=== PATIENT | female | born 1945 | race Caucasian/White ===

== ENCOUNTER → 2017-02-10 | Outpatient (CLI) | payer OTHER ==
--- NOTE | 2017-02-13 14:30 | MAMMOGRAPHY REPORT ---
BILATERAL DIGITAL SCREENING MAMMOGRAM TOMOSYNTHESIS WITH CAD: 02/10/2017 CLINICAL HISTORY: Routine screening. Patient has no complaints. TECHNIQUE: Breast tomosynthesis in addition to standard 2D mammography was performed. Current study was also evaluated with a Computer Aided Detection (CAD) system. COMPARISON: Comparison is made to exams dated: 02/09/2016 mammogram, 02/04/2015 mammogram, 02/03/2014 abdullahi mogram, 01/31/2013 mammogram, 01/05/2012 mammogram, and 07/15/2011 mammogram - [facility]. BREAST COMPOSITION: The tissue of both breasts is almost entirely fatty. FINDINGS: No suspicious masses, calcifications, or areas of architectural distortion are noted in ei ther breast. There has been no significant interval change compared to prior exams. IMPRESSION: ACR BI-RADS CATEGORY 1: NEGATIVE There is no mammographic evidence of malignancy. A 1 year screening mammogram is recommended. The pa tient will receive written notification of the results. Approximately 10% of breast cancers are not detected with mammography. A negative mammographic report should not delay biopsy if a clinically suggestive mass is present. Caitie Saucedo M.D. /:02/10/2017 16:30:42 Appeals Board Referee: Jesenia Eastman, [facility] letter sent: Normal 1/2 BI-RADS Code: ACR BI-RADS Category 1: Negative
== END | disposition home or self-care (01) ==
LOC: C.MAMM 11:08
PROVIDERS: ATTEND Family Medicine
DX: Z12.31 Encounter for screening mammogram for malignant neoplasm of breast (principal)

== ENCOUNTER 2021-03-26 09:25 | Observation (INO) ==
--- NOTE | 2021-02-24 12:53 | PAT Medication Instructions ---
Medication Instructions Date of Service February 24, 2021 Home Medications Medication Instructions Recorded diclofenac sodium 75 mg See Rx Instructions .ROUTE 12/07/20 tablet,delayed release .COMPLEX #60 tab tramadol 50 mg tablet 50 mg PO Q8H PRN #30 tab 02/22/21 acetaminophen 325 mg capsule 325 mg PO Q6H PRN hydrochlorothiazide 25 mg tablet 25 mg PO QAM omeprazole 20 mg capsule,delayed release 20 mg PO QAM diclofenac sodium 75 mg tablet,delayed release See Rx Instructions .ROUTE .COMPLEX tramadol 50 mg tablet 50 mg PO Q8H PRN escitalopram oxalate 20 mg tablet 20 mg PO QAM furosemide 40 mg tablet (Lasix) 40 mg PO QAM glucosamine sulf dipot chlr,msm,chond 550 mg-C 30 mg-brian 1 mg capsule (Glucosamine Chondroitin) 1 cap PO BID ibuprofen 200 mg tablet (Advil) 400 mg PO Q6H PRN ASK your surgeon for instructions diclofenac sodium 75 mg tablet,delayed release See Rx Instructions .ROUTE .COMPLEX ibuprofen 200 mg tablet (Advil) 400 mg PO Q6H PRN STOP taking 2 weeks before surgery (or as soon as possible if surgery is within 2 weeks) glucosamine sulf dipot chlr,msm,chond 550 mg-C 30 mg-brian 1 mg capsule (Glucosamine Chondroitin) 1 cap PO BID DO NOT take the morning of surgery hydrochlorothiazide 25 mg tablet 25 mg PO QAM furosemide 40 mg tablet (Lasix) 40 mg PO QAM Take morning of surgery With a small sip of water, OTHERWISE NOTHING TO EAT OR DRINK AFTER MIDNIGHT: acetaminophen 325 mg capsule 325 mg PO Q6H PRN (if needed) omeprazole 20 mg capsule,delayed release 20 mg PO QAM tramadol 50 mg tablet 50 mg PO Q8H PRN (if needed) escitalopram oxalate 20 mg tablet 20 mg PO QAM Take evening before surgery acetaminophen 325 mg capsule 325 mg PO Q6H PRN (if needed) tramadol 50 mg tablet 50 mg PO Q8H PRN (if needed) Other Notes If you have any questions please call us at [phone] or [phone] or [phone] or [phone]
--- NOTE | 2021-03-01 14:07 | Anesthesiology Consultation ---
Date of Service March 01, 2021 Assessment & Plan (1) Encounter for pre-operative examination: - Abnormal CXR: Per report, Tiny nodular foci of the lungs measure up to 3 mm, possibly district representative of prior granulomatous disease with recommendation to correlate with prior imaging. Awaiting response from PCP. - COVID screening: Per assessment on 03/01: Travel screen negative, no known [place] VID-19 positive contacts or current COVID-19 related symptoms. Surgeon arranging preop COVID testing. Awaiting results. - Per patient, she states surgeon's office informed her that the plan is to stay overnight postoperatively. Chart Review Chart Review: Patient seen in Pre Admission Testing Teaching & Discussion Pre-Anesthesia Teaching/Discussion Notes: Instructed NPO after midnight before surgery,except medications with 15 cc of water. Medication instructions provided according to the PAT guidelines. History Surgery Operation Date: 03/26/21 07:00 Proposed Procedures p Left Total Knee Arthroplasty - Romeo Florian, Height/Weight Height: 5 ft 5 in Weight: 82.6 kg Allergies Allergy/AdvReac Type Severity Reaction Status Date / Time No Known Allergies Allergy Verified 02/23/21 15:00 Medications Home Medications Medication Instructions Recorded Confirmed Last Taken acetaminophen 325 mg capsule 325 mg PO Q6H PRN 07/02/19 02/23/21 Unknown hydrochlorothiazide 25 mg tablet 25 mg PO QAM 07/02/19 02/23/21 Unknown omeprazole 20 mg capsule,delayed 20 mg PO QAM 07/02/19 02/23/21 Unknown release diclofenac sodium 75 mg See Rx Instructions .ROUTE 12/07/20 02/23/21 Unknown tablet,delayed release .COMPLEX #60 tab tramadol 50 mg tablet 50 mg PO Q8H PRN #30 tab 02/22/21 02/23/21 Unknown escitalopram oxalate 20 mg tablet 20 mg PO QAM 02/23/21 02/23/21 Unknown furosemide 40 mg tablet (Lasix) 40 mg PO QAM 02/23/21 02/23/21 Unknown glucosamine sulf dipot 1 cap PO BID 02/23/21 02/23/21 Unknown chlr,msm,chond 550 mg-C 30 mg-brian 1 mg capsule (Glucosamine Chondroitin) ibuprofen 200 mg tablet (Advil) 400 mg PO Q6H PRN 02/23/21 02/23/21 Unknown Past Medical History Medical History Acid reflux Anxiety Depression History of blood clots Superficial LLE clot (approximately 8 months ago), unknown etiology, advised to wear compression stockings, no issues since Hypertension Osteoarthritis Exercise / Class Metabolic Activity III < 4 Walking/Shop/Light housework (one FS (no CP, no SOB)) Past Family History Family History Daughter Family history of reaction to anesthesia difficulty waking Past Surgical History Surgical History History of bilateral tubal ligation History of bladder suspension procedure History of cholecystectomy History of colonoscopy History of dilatation and curettage x2 History of tooth extraction all teeth removed Past Anesthesia History No Hx of Anesthesia Complications and No Family Hx of Anesthesia Complications History of PONV No Hx of PONV and No Hx of Motion Sickness Social History Smoking Status: Never smoker Do You Dip or Chew Tobacco: No Hx Alcohol Use: No Hx Substance Use: No substance use type: does not use Review of Systems Patient denies chest pain, shortness of breath, fever, chills, cough, wheezing, palpitations. Physical Exam Vital Signs VITALS BP 136/75 P 65 TEMP 98.6 SP02 95%RA RESP 18 PHYSICAL Full cervical extension range of motion. Full TMJ range of motion. TMD 3.5 finger breaths Mallampati Score 2 Dentition: upper/lower dentures (full) Lungs: clear throughout to auscultation Cardiac: regular rate and rhythm, no murmurs noted Spine: normal Carotid arteries: negative bruit Extremities: no edema Lab Results Anesthesia Preop Results Results Anesthesia Widget: WBC 8.32 K/uL (4.8-10.8) 03/01/21 Hgb 12.1 g/dL (12.0-16.0) 03/01/21 Hct 37.5 % (37-47) 03/01/21 Plt 443 K/uL (130-400) H 03/01/21 Na 138 mmol/L (136-145) 03/01/21 K 3.3 mmol/L (3.5-5.1) L 03/01/21 Cl 100 mmol/L (98-107) 03/01/21 CO2 32 mmol/L (21-32) 03/01/21 BUN 14 mg/dl (7-18) 03/01/21 Creat 1.01 mg/dl (0.6-1.2) 03/01/21 Glucose Level 90 mg/dl (70-99) 03/01/21 PT 10.5 Seconds (9.0-12.0) 03/01/21 PTT 25.5 Seconds (21.0-31.0) 03/01/21 INR 1.0 (0.9-1.1) 03/01/21 Blood Type A Positive 03/01/21 Antibody Screen NEGATIVE 03/01/21 Testing Electrocardiogram Date: 03/01/21 NSR at 62bpm. Moderate voltage criteria for LVH, may be normal variant. Chest X-Ray Date: 03/01/21 FINDINGS: Cardiomediastinal and hilar silhouettes are within normal limits. Calcified plaque of the thoracic aorta. No pneumothorax, pleural effusion, airspace consolidation or overt pulmonary edema. Several subcentimeter nodular foci of the lungs measure up to approximately 3 mm. The bones appear grossly intact. Sigmoidal thoracolumbar scoliosis. IMPRESSION: No acute processes. Tiny nodular foci of the lungs measure up to 3 m m, possibly district representative of prior granulomatous disease. Correlate with prior imaging.
--- NOTE | 2021-03-25 13:37 | History & Physical Report ---
Date of Service March 25, 2021 Assessment & Plan (1) Osteoarthritis of left knee: We will proceed with a left total knee arthroplasty. Postoperatively she will be started on aspirin for DVT prophylaxis and kept overnight in the hospital for postoperative medical management. She plans to talk to the hospital about setting up home health upon discharge. History of Present Illness Chief Complaint: Osteoarthritis of the left knee. Primary Care Provider: Arslan Sousa MD Deanna is a pleasant 75-year-old female who is been doing with chronic worsening left knee pain. X-rays and clinical examination have been diagnostic for advanced osteoarthritis of the left knee. After failing years of conservative treatment, she has elected proceed with a left total knee arthroplasty.. Allergies Allergy/AdvReac Type Severity Reaction Status Date / Time No Known Allergies Allergy Verified 02/23/21 15:00 Home Medications Medication Instructions Recorded Confirmed Type acetaminophen 325 mg capsule 325 mg PO Q6H PRN 07/02/19 02/23/21 History hydrochlorothiazide 25 mg tablet 25 mg PO QAM 07/02/19 02/23/21 History omeprazole 20 mg capsule,delayed 20 mg PO QAM 07/02/19 02/23/21 History release diclofenac sodium 75 mg See Rx Instructions .ROUTE 12/07/20 02/23/21 Rx tablet,delayed release .COMPLEX #60 tab tramadol 50 mg tablet 50 mg PO Q8H PRN #30 tab 02/22/21 02/23/21 Rx escitalopram oxalate 20 mg tablet 20 mg PO QAM 02/23/21 02/23/21 History furosemide 40 mg tablet (Lasix) 40 mg PO QAM 02/23/21 02/23/21 History glucosamine sulf dipot 1 cap PO BID 02/23/21 02/23/21 History chlr,msm,chond 550 mg-C 30 mg-brian 1 mg capsule (Glucosamine Chondroitin) ibuprofen 200 mg tablet (Advil) 400 mg PO Q6H PRN 02/23/21 02/23/21 History tramadol 50 mg tablet 50 mg PO Q8H PRN #30 tab 03/08/21 Rx Past Med/Surg History Medical History Acid reflux Anxiety Depression History of blood clots Superficial LLE clot (approximately 8 months ago), unknown etiology, advised to wear compression stockings, no issues since Hypertension Osteoarthritis Surgical History History of bilateral tubal ligation History of bladder suspension procedure History of cholecystectomy History of colonoscopy History of dilatation and curettage x2 History of tooth extraction all teeth removed Family History Daughter Family history of reaction to anesthesia difficulty waking Social History Smoking Status: Never smoker Second Hand Exposure: No; Hx Alcohol Use: No Hx Substance Use: No Preferred Language: Nepali Communication Ability: Effective Dental Technology Advisor Required: No Beliefs That Will Affect Care: None Current Living Situation: Family Current Living Situation Comment: Lives with son Feels Safe at Home: Yes Assistive Devices: Denture - Upper, Denture - Lower and Glasses Review of Systems All systems reviewed & are unremarkable except as noted in HPI & below. Physical Exam On physical examination of the left knee, she has a slight varus deformity. She has good motion of 0 to 120 degrees she has no instability she has pain with distal medial femoral condyle.. Constitutional WD/WN, vitals as above Eyes PERRL, conjunctivae normal, anicteric sclerae ENMT external ear and nose normal, oropharynx normal Neck trachea midline, no thyromegaly Respiratory normal respiratory effort Cardiovascular RRR, no murmur, no edema Gastrointestinal (Abdomen) normal bowel sounds, soft, nontender, no hepatosplenomegaly Psychiatric A+Ox3, euthymic affect Results & Data Results & Data Laboratory Results . Diagnostic Findings X-rays of the left knee show advanced osteoarthritis with joint space narrowing, osteophyte formation, and [id number] articulation. PG Care Time/CCT Total # of Minutes Spent Total Time Spent with Patient: Total time spent is greater than 50% in coordination of care (as documented) at patient's floor/unit and/or counseling patient: Coding Level of Care Code None Diagnoses Osteoarthritis of left knee M17.12
[~2021-03-26 09:25] MED LIST: ACETAMINOPHEN 500 MG TAB PO SCH; BUPIVACAINE 0.5 % 5 MG/1 ML PF 10ML VIAL ONE; FAMOTIDINE 20 MG TAB PO SCH; GABAPENTIN 300 MG CAP PO SCH; LR 500ML BOLUS, THEN 15ML/HR IV SCH; LR 60ML/HR IV SCH; ROPIVACAINE 0.5% 5 MG/ML 30 ML VIAL ONE; ROPIVACAINE 0.5% HCL/PF 150 MG, BUPIVACAINE 0.75% MPF 20 ML, EPINEPHrine 30MG/30ML (OR ... INSTIL SCH; TRANEXAMIC ACID 1,000 MG **IV Intra-op IV SCH; TRANEXAMIC ACID 1,000 MG **IV Pre-op IV SCH; ceFAZolin 2000MG 2,000 MG/15 ML SYR IV SCH; dexAMETHasone 4 MG TAB PO SCH
--- NOTE | 2021-03-26 11:28 | History & Physical Bridge Note ---
Date of Service March 26, 2021 History & Physical Bridge Note I have examined the patient, reviewed the History & Physical and in the interval since the performance of the History & Physical I have noted the following changes of clinical significance: no changes noted
[2021-03-26] MEDS ORDERED: KETOROLAC 30 MG/ML VIAL IV PRN (11:45)
[2021-03-26] MEDS ORDERED: ePHEDrine sulfate 50 MG/ML AMP IV PRN (11:45)
[2021-03-26] MEDS ORDERED: ATROPINE SULFATE 0.1 MG/ML 10ML SYR IV PRN (11:45)
[2021-03-26] MEDS ORDERED: ONDANSETRON INJ 2 MG/ML 2 ML VIAL IV PRN ×2 (11:45→15:34)
[2021-03-26] MEDS ORDERED: HYDROmorphone INJ 1 MG/ML SYRINGE IV PRN (11:45)
[2021-03-26] MEDS ORDERED: ORTHO JOINT ANESTHETIC ONE (11:56)
[2021-03-26] MEDS ORDERED: MIDAZOLAM HCL 1 MG/ML 2ML VIAL ONE (13:08)
[2021-03-26] MEDS ORDERED: fentaNYL citrate 100 MCG/2 ML VIAL ONE (13:08)
[2021-03-26] MEDS ORDERED: PROPOFOL IV EMULSION 10 MG/ML 20 ML VIAL IV ONE (13:31)
--- NOTE | 2021-03-26 13:41 | Operative Report ---
PG Post Operative Report Pre & Post Diagnosis Operation Date: 03/26/21 11:10 Pre-Op Diagnosis: Left Knee Degenerative Joint Disease Post-Op Diagnosis: Left Knee Degenerative Joint Disease I identified the patient and participated in the time-out.: Yes Procedure Operation Date: 03/26/21 11:10 Actual Procedures p Left Total Knee Arthroplasty(Left) - Romeo Florian DO Surgeon Romeo Florian DO Social Studies Teacher Romeo Dangelo PAC Estimated Blood Loss 10 Findings Consistent with Post-Op Diagnosis Specimens Left femoral and tibial bone Complications none Disposition Disposition: Recovery Room Indications Deanna is a pleasant 75-year-old female who presented my office with chronic increasing left knee pain. X-rays and clinical examination were diagnostic for advanced osteoarthritis of the left knee. After failing conservative treatment, she elected proceed with a left total knee arthroplasty. Description of Procedure Implants used: I used a Jeremiah Persona total knee arthroplasty system with a size 8 standard femur, E tibia, 32 patella, and a size 12 medial congruent polyethylene bearing. All components were cemented in place with Biomet cement. Deanna arrived [facility] for the above procedure. She was seen in the preoperative holding area and the operative extremity was identified and signed. She was given a preoperative antibiotic, TXA, a spinal anesthetic and an adductor nerve block. She was taken back to the operating room and laid on the table in supine position. She was given basic sedation. The operative knee was then prepped and draped in sterile fashion. A timeout was done, and the patient and the operative extremity was properly identified. A midline incision was made directly over the patella. Dissection was taken down to the extensor mechanism. A subvastus arthrotomy was used. The medial retinaculum was released and the fat pad was mostly excised. The knee was flexed and the ACL, PCL, and meniscus were removed. A drill was sent down the center of the femoral canal followed by an intramedullary alex. Off that alex a distal femoral cutting block was placed. 9 mm was resected off the distal femur at 5 of valgus. A posterior referencing AP sizing guide was then placed on the distal femur. The femur measured to be a size 8 standard. 2 drill holes were placed in 3 of external rotation. A 4-in-1 cutting block was then impacted into place. Anterior, posterior, and chamfer cuts were then made. The proximal tibia was then exposed. An external tibial alignment guide was placed. A tibial cut guide was then anchored in plac e and the proximal tibia was then resected. The posterior aspect of the knee was then opened up and any additional meniscus fragments and osteophytes were removed. The tibia measured to be a size E. The tibial plate was then placed in the appropriate rotation and the tibia was drilled and punched. Trial components were then placed. I used a size 12 medial congruent polyethylene insert. The knee was brought through a full range of motion and felt to be stable. The peg holes for the femoral component were then drilled. The patella was then everted and 9 mm was resected off the posterior aspect of the patella. The patella measured to be a size 32. 3 peg holes were then drilled. A trial patella was placed. The knee was once again brought through a full range of motion and felt to be stable. Trial components were then removed. The surrounding soft tissues were injected with 100 cc of an orthopedic pain control cocktail. All components were then cemented into place with Biomet cement. The final polyethylene insert was then snapped into place. Once cement was dry the tourniquet was deflated. Hemostasis was obtained. A dilute betadyne lavage was then done for 3 minutes. The joint was then irrigated with normal saline solution. The subvastus arthrotomy was then closed with #1 Vicryl suture. The skin was closed with 2-0 Vicryl, 3-0V lock suture, and lynn. A soft compressive dressing was placed. She was then transferred to a hospital bed and taken to the postanesthesia care unit in stable condition. She tolerated the procedure well. Romeo Dangelo PA-C, was present for the entire procedure. He was critical for patient positioning, prepping, draping, retraction exposure, wound closure and application of sterile dressing. I attest to the content of the Intraoperative Record and any orders documented therein. Any exceptions are noted below.
--- NOTE | 2021-03-26 14:38 | XRay Report ---
LEFT KNEE 2 VIEWS History: Left total knee arthroplasty. Degenerative arthritis. Postop. FINDINGS: The patient is status post a left total knee arthroplasty. The hardware is intact. No fract ure or dislocation. Skin lynn are in place. IMPRESSION: Left total knee arthroplasty. No evidence for hardware complication. ACT 112: Negative or not required by law. Electronically signed by: Heath Aaron M.D. 03/26/2021 2:36 PM
[2021-03-26] MEDS ORDERED: SODIUM CHLORIDE 0.9% 1000ML 1,000 ML IV SCH (15:34)
[2021-03-26] MEDS ORDERED: bisacodyL 10 MG SUPP PR PRN (15:34)
[2021-03-26] MEDS ORDERED: METOCLOPRAMIDE HCL INJ 5 MG/ML 2 ML VIAL IV PRN (15:34)
[2021-03-26] MEDS ORDERED: HYDROmorphone INJ 0.5 MG/0.5 ML SYR IV PRN (15:34)
[2021-03-26] MEDS ORDERED: NALOXONE HCL 0.4 MG/1 ML VIAL/CARP IV PRN (15:34)
[2021-03-26] MEDS ORDERED: MAGNESIUM HYDROXIDE SUSP 30 ML UDC PO PRN (15:34)
--- NOTE | 2021-03-26 15:58 | Anesthesiology Progress Note ---
Date of Service March 26, 2021 Anesthesia Post Procedure Vital Signs Vital Signs: Temp Pulse Resp BP Pulse Ox 03/26/21 15:55 62 16 143/75 H 95 03/26/21 15:37 36.6 C 67 14 126/51 L 96 03/26/21 15:30 36.6 C 64 16 126/61 97 03/26/21 15:10 58 L 15 122/68 97 03/26/21 15:00 62 16 128/66 97 03/26/21 14:50 36.6 C 62 14 116/65 97 03/26/21 14:40 71 14 132/69 98 03/26/21 14:30 64 18 124/64 96 03/26/21 14:20 69 19 119/69 98 03/26/21 14:10 72 16 120/63 97 03/26/21 14:02 36.8 C 72 14 111/57 L 96 03/26/21 10:50 37 C 67 18 173/73 H 96 03/26/21 10:26 36.5 C 68 18 171/99 H 96 Transfer of Care Handoff Completed per policy Notes Mental Status: alert / awake / arousable and participated in evaluation Nausea / Vomiting: adequately controlled Pain: adequately controlled Airway Patency, RR, SpO2: stable & adequate BP & HR: stable & adequate Hydration State: stable & adequate Neuraxial Anesthesia: was administered and sensory block is resolving Anesthetic Complications: no major complications apparent and Pt Satisfied with anesthetic care
[2021-03-26] MEDS: KETOROLAC TROMETHAMINE 15 MG/ML VIAL IV SCH ×2 (16:34→22:50)
[2021-03-26] MEDS: ceFAZolin 2000MG 2,000 MG/15 ML SYR IV SCH (20:29)
[2021-03-26] MEDS: ASPIRIN 81 MG ECTAB PO SCH (20:30)
[2021-03-26] MEDS: SENNA 8.6 MG TAB PO SCH (20:30)
[2021-03-26] MEDS: DOCUSATE SODIUM 100 MG CAP PO SCH (20:30)
[2021-03-26] MEDS: ACETAMINOPHEN 500 MG TAB PO SCH (21:19)
[2021-03-27] MEDS: ceFAZolin 2000MG 2,000 MG/15 ML SYR IV SCH (04:03)
[2021-03-27] MEDS: KETOROLAC TROMETHAMINE 15 MG/ML VIAL IV SCH ×4 (04:04→22:43)
[2021-03-27] MEDS: ACETAMINOPHEN 500 MG TAB PO SCH ×3 (05:39→22:43)
[2021-03-27] MEDS ORDERED: dexAMETHasone 4 MG TAB PO SCH (08:00)
[2021-03-27] MEDS: ASPIRIN 81 MG ECTAB PO SCH ×2 (08:38→19:58)
[2021-03-27] MEDS: MULTIVITAMIN TAB PO SCH (08:39)
[2021-03-27] MEDS: ESCITALOPRAM OXALATE 20 MG TAB PO SCH (08:40)
[2021-03-27] MEDS: DOCUSATE SODIUM 100 MG CAP PO SCH ×2 (08:40→19:58)
[2021-03-27] MEDS: PANTOprazole 40 MG TAB PO SCH (08:40)
[2021-03-27] MEDS: hydroCHLOROthiazide 25 MG TAB PO SCH (08:43)
[2021-03-27] MEDS: FUROSEMIDE 40 MG TAB PO SCH (08:43)
--- NOTE | 2021-03-27 08:53 | Orthopedic Progress Note ---
Date of Service March 27, 2021 Assessment & Plan (1) Status post left knee replacement: Overall she doing very well. She is not any much pain in the left knee. She will be seen by physical therapy today for ambulation and range of motion exercises. She is on aspirin for DVT prophylaxis. We will keep her in the hospital today for therapy and to make sure pain is controlled when the block starts to wear off. We will plan discharge to home either tomorrow or Monday. We will see how she does. Hilario Huerta was seen and examined at bedside this morning. Overall she is doing very well. She denies any pain in the left knee she. She has been up and ambulating. She is little bit concerned about going home. She says she has a lot of steps at home and she does not have people to take care of her today.. Review of Systems All systems reviewed & are unremarkable except as noted in HPI & below. Physical Exam On physical examination of the left knee, the dressing is clean and dry. Her right leg is out to full extension. She has active dorsiflexion plantarflexion of her left ankle. Sensation is intact throughout.. Results & Data Results & Data Laboratory Results . Diagnostic Findings Postoperative x-rays of the left knee show the prosthesis to be in anatomic alignment without any evidence of fracture, dislocation, or loosening. PG Care Time/CCT Total # of Minutes Spent Total Time Spent with Patient: Total time spent is greater than 50% in coordination of care (as documented) at patient's floor/unit and/or counseling patient: Coding Level of Care Code 87998 Post Operative Follow-Up Diagnoses Status post left knee replacement Z96.652
[2021-03-27] MEDS ORDERED: MELATONIN 3 MG TAB PO PRN (11:15)
[2021-03-27] MEDS: SENNA 8.6 MG TAB PO SCH (19:58)
[2021-03-27] MEDS: oxyCODONE HCL IR 5 MG TAB (IMMEDIATE RELEASE) PO PRN (22:51)
[2021-03-28] MEDS: KETOROLAC TROMETHAMINE 15 MG/ML VIAL IV SCH ×2 (04:58→11:01)
[2021-03-28] MEDS: ACETAMINOPHEN 500 MG TAB PO SCH ×2 (06:36→13:39)
--- NOTE | 2021-03-28 08:08 | Orthopedic Progress Note ---
Date of Service March 28, 2021 Assessment & Plan (1) Status post left knee replacement: Overall she is doing fairly well. She is not any much pain in the left knee. She will be seen by physical therapy again today for ambulation and range of motion exercises. She will then be discharged to home. She will follow-up with orthopedics in 2 weeks. She is on aspirin for DVT prophylaxis. Hilario Huerta was seen and examined at bedside this morning. Overall she is doing fairly well. She is not in too much pain in the left knee. She was able to participate well with yesterday with physical therapy. She has no complaints.. Review of Systems All systems reviewed & are unremarkable except as noted in HPI & below. Physical Exam On physical examination of the left knee, the dressing has been changed. The incision is clean and dry. She is neurovascular intact.. Results & Data Results & Data Laboratory Results . Diagnostic Findings . PG Care Time/CCT Total # of Minutes Spent Total Time Spent with Patient: Total time spent is greater than 50% in coordination of care (as documented) at patient's floor/unit and/or counseling patient: Coding Level of Care Code 50742 Post Operative Follow-Up Diagnoses Status post left knee replacement Z96.652
--- NOTE | 2021-03-28 08:09 | Discharge Summary ---
Date of Service March 28, 2021 Admission HPI (Per Admitting) Deanna is a pleasant 75-year-old female who is been doing with chronic worsening left knee pain. X-rays and clinical examination have been diagnostic for advanced osteoarthritis of the left knee. After failing years of conservative treatment, she has elected proceed with a left total knee arthroplasty.. Admission Exam (Per Admitting) On physical examination of the left knee, she has a slight varus deformity. She has good motion of 0 to 120 degrees she has no instability she has pain with distal medial femoral condyle.. Principal Diagnosis Same as "Discharge Diagnosis" noted below under Discharge Instructions. Discharge Exam On physical examination of the left knee, the dressing has been changed. The incision is clean and dry. She is neurovascular intact.. Discharge Data Procedures Performed Operation Date: 03/26/21 11:10 Actual Procedures p Left Total Knee Arthroplasty(Left) - Romeo Florian DO Ordered Studies 03/26/21 05:00 US - OR guided needle placemen Routine Hospital Course (1) Status post left knee replacement: On March 26, 2021 Deanna arrived at [facility] and underwent a left total knee arthroplasty without complication. She had a spinal anesthetic. Postoperatively she was started on aspirin for DVT prophylaxis and transferred to the general orthopedic floors. Her hospital course was uneventful. On postop day #1 her vital signs were stable and her pain was well controlled. She was able to straight well with physical therapy doing ambulation and range of motion exercises. On postop day #2 she continued to do well. She was not having too much pain in the left knee. She was seen again by physical therapy and able to participate well. She was then discharged home. She will follow-up with orthopedics in 2 weeks. PG Care Time/CCT Total # of Minutes Spent Total Time Spent with Patient: Total time spent is greater than 50% in coordination of care (as documented) at patient's floor/unit and/or counseling patient: Discharge Plan Discharge Items Patient Disposition: Home - Home Health Services Reason For Visit: Left Knee Degenerative Joint Disease Discharge Diagnosis: Left knee replacement Activity: As commented below Non-emergency contact: Surgeon Call non-emergency contact if: your wound has increased redness and your wound has increased drainage Follow-up/Referrals: Arslan Sousa MD [Primary Care Provider] - Diet: Regular Addtl Attending Provider Instructions: Activity and Therapy Recommendations: * If you are using [facility] then therapy will be provided at your home until they feel you have accomplished all of your goals. * If you are using [facility] then Physical Therapy will be provided until they feel you are ready to start Outpatient Physical Therapy. * If you are not using home therapy then Outpatient Physical Therapy should start about 3-5 days from your day of surgery. Therapy will last about 6-10 weeks * It is important not to put a pillow under your knee when you are relaxing or sleeping. It is just as important to make sure you are getting your knee perfectly straight as it is to regain your knee bend. * You were shown a series of exercises in the hospital. Do these exercises three times each day including the exercises you were shown in physical therapy. * Get up and walk several times each day. For the first four weeks, try not to stand or walk for more than one hour at a time. If you do stand or walk for more than one hour, you will not hurt anything, but your leg will likely swell. * As you feel comfortable, you may change from the walker or crutches to a cane and then to independent walking. Medications: * Narcotic You will likely be sent home from the hospital with a prescription for the narcotic pain medication that worked best throughout your stay. * Aspirin Most patients will be required to take Aspirin 81mg twice a day for 6 weeks after surgery. This is obtained [id number] and a prescription is not necessary. * Other medications may be prescribed for specific circumstances. If you have any questions, please call the office at . * Resume previous home medications unless otherwise instructed TEDs/Elastic Stockings: The white elastic stockings help limit swelling and prevent blood clots from forming in your legs.~ The more you wear them, the more they work. Wear them for six weeks. Dressing Care: The dressing can be changed after physical therapy on postop day #1. Daily dry dressing changes for a few days, especially if the incision is still draining some. If the incision is not draining then you may leave the lynn open to air. If there is a little bit of drainage or if the lynn are getting stuck on your clothing then cover the incision with a dry dressing. The lynn will be removed at your 2 week follow-up appointment. Showering: You may shower 5 days from the day of surgery as long as the incision is no longer draining. You may shower with the lynn exposed. Let soapy water run over the lynn and pat them dry. Do not scrub or soak the incision. Things To Watch For: * Drainage from the incision site that occurs more than one week after your surgery. * Increased redness at the incision site. * Fever above 102 degrees Fahrenheit. * Unusual chest pain or shortness of breath. * Call [facility] at with any of the above problems Follow-Up Visit: Follow-up with Dr. Florian's PA (Romeo Dangelo) 2-3 weeks after your day of surgery. He will remove your lynn and answer any questions. If you have any additional questions or concerns, Dr Florian is usually in the office at the same time and will be available An appointment was probably scheduled when you signed-up for surgery in the office. If you have any questions call Office Instructions: More detailed instructions as well as Frequently Asked Questions were provided in a folder by our office when you signed-up for surgery. Please review these instructions when you get home. If you have any further questions or concerns, please feel free to call the office at [phone] Pending Studies at Discharge: No Stand-Alone Forms: My [facility] Medications and DC Order Prescriptions: New oxycodone 5 mg Tablet 5 mg PO Q4H PRN (Reason: pain) Qty: 40 RF: 0 aspirin 81 mg Tablet,Delayed Release (Dr/Ec) 81 mg PO BID 42 Days Qty: 84 RF: 0 Continued diclofenac sodium 75 mg tablet,delayed release (DR/EC) See Rx Instructions .ROUTE .COMPLEX Qty: 60 RF: 2 tramadol 50 mg tablet 50 mg PO Q8H PRN (Reason: pain) Qty: 30 RF: 0 tramadol 50 mg tablet 50 mg PO Q8H PRN (Reason: pain) Qty: 30 RF: 0 hydrochlorothiazide 25 mg tablet 25 mg PO QAM RF: 0 omeprazole 20 mg capsule,delayed release(DR/EC) 20 mg PO QAM RF: 0 acetaminophen 325 mg capsule 325 mg PO Q6H PRN (Reason: Pain) RF: 0 furosemide [Lasix] 40 mg Tablet 40 mg PO QAM RF: 0 ibuprofen [Advil] 200 mg Tablet 400 mg PO Q6H PRN (Reason: Pain) RF: 0 escitalopram oxalate [Lexapro] 20 mg Tablet 20 mg PO QAM RF: 0 Glucosamine Chondroitin 550-30-1 mg Capsule 1 cap PO BID RF: 0 Discharge Orders: Discharge Order (Routine); Ordered 03/28/21 Ordered By: Romeo Florian Admission Data Admit Date/Time: 03/26/21 14:03 Attending Provider: Romeo Florian Admit Provider: Romeo Florian Primary Care Provider: Arslan Sousa Other Providers: [facility],Home Healthcare
[2021-03-28] MEDS: oxyCODONE HCL IR 5 MG TAB (IMMEDIATE RELEASE) PO PRN (08:42)
[2021-03-28] MEDS: FUROSEMIDE 40 MG TAB PO SCH (08:43)
[2021-03-28] MEDS: ASPIRIN 81 MG ECTAB PO SCH (08:43)
[2021-03-28] MEDS: hydroCHLOROthiazide 25 MG TAB PO SCH (08:44)
[2021-03-28] MEDS: MULTIVITAMIN TAB PO SCH (08:44)
[2021-03-28] MEDS: ESCITALOPRAM OXALATE 20 MG TAB PO SCH (08:44)
[2021-03-28] MEDS: DOCUSATE SODIUM 100 MG CAP PO SCH (08:44)
[2021-03-28] MEDS: PANTOprazole 40 MG TAB PO SCH (08:45)
== END 2021-03-28 15:30 | disposition home health service (06) ==
LOC: ASU 09:25 → 3N 09:25

== ENCOUNTER 2021-11-05 08:32 | Observation (INO) ==
--- NOTE | 2021-11-02 10:21 | Anesthesiology Consultation ---
Date of Service November 02, 2021 Assessment & Plan (1) Encounter for pre-operative examination: - check coags am DOS. - optimization note completed to be faxed to PCP regarding hypokalemia and if patient is stable to proceed with surgery given recent COVID illness, abnormal chest CTA and worsening shortness of breath/dyspnea on exertion. Attempted to reach patient to discuss any residual symptoms, voicemail not yet set up. Generic message left on daughter's listed number, primary contact in chart. Awaiting PCP optimization. Pt returned call and states that shortness of breath and dyspnea on exertion have resolved, has occasional cough which she states has been ongoing prior to COVID diagnosis though denied cough at PAT visit. She is aware surgery is pending PCP review and optimization determination especially regarding recent hypokalemia. She verbalized understanding, denied questions. - PCP ER f/u 10/11/2021 [facility]: "...Was seen at [facility] ER 10/06/21 for SOB and back pain since Covid+ 09/26/21...elevated WBC and d dimer. Subsequent CT PE showed ground glass opacity in right middle lobe, concern for early Covid pneumonia. Had been seen in office 09/30/21 and started on doxycycline and prednisone. Had chest xray, labs that were unremarkable at that time. Has finished doxycyline and prednisone. Reports she is improving. Still with SOB and STARKEY. Get STARKEY walking around house or standing for long periods. Cough has improved. + sneezing. Denies wheezing, fever. Still with right mid back pain as well. Currently using tylenol for pain about 1-2 times per day...VSS, overall is improving. Counseled that symptoms often take 4-6 weeks to resolve. Will add albuterol. Continue tylenol, heat as needed..." - ER 10/06/2021 [facility]: "...complaints of elevated D-dimer on labs drawn by her primary care provider...tested positive for Covid 8 days ago however symptoms started approximately 10 days ago...increasing shortness of breath with exertion...pain in her bilateral posterior rib area...pain is a 3 out of 10...had nausea, vomiting, diarrhea yesterday but denies current...does complain of chest discomfort...CBC shows...elevated WBC...CMP shows low potassium at 2.9 ...replenished with IV potassium...DDimer was elevated at 1.17. CTA PE to R/o PE...CT angiography: no pulmonary embolism. Patchy ground-glass opacity within the right middle lobe may represent an inflammatory or infectious process. Early COVID pneumonia cannot be excluded...EKG trop not c/w ACS...Pt is stable for discharge... - COVID screening: Per net[employer] administrator on 11/01/2021: Travel screen negative, no known COVID-19 positive contacts or current COVID-19 related symptoms in past 2 weeks. No pre-op COVID testing needed given recent COVID illness per surgeon's office, positive test completed at [facility] site 10/04/2021. Chart Review Chart Review: Pending: Refer to Additional Notes / Consult section and Patient NOT seen in Pre Admission Testing History Surgery Operation Date: 10/06/21 08:50 Proposed Procedures p Right Total Knee Arthroplasty - Romeo Florian DO Operation Date: 11/05/21 12:10 Proposed Procedures p Right Total Knee Arthroplasty - Romeo Florian DO Surgery re-scheduled since 07/2021 anesthesia review. Height/Weight Height: 5 ft 5 in Weight: 77.111 kg Allergies Allergy/AdvReac Type Severity Reaction Status Date / Time No Known Allergies Allergy Verified 11/01/21 14:56 Medications Home Medications Medication Instructions Recorded Confirmed Last Taken acetaminophen 325 mg capsule 325 mg PO Q6H PRN 07/02/19 11/01/21 03/26/21 07:00 hydrochlorothiazide 25 mg tablet 25 mg PO QAM 07/02/19 11/01/21 03/25/21 12:00 omeprazole 20 mg capsule,delayed 20 mg PO QAM 07/02/19 11/01/21 03/26/21 07:00 release escitalopram oxalate 20 mg tablet 20 mg PO QAM 02/23/21 11/01/21 03/26/21 07:00 (Lexapro) furosemide 40 mg tablet (Lasix) 40 mg PO QAM 02/23/21 11/01/21 03/25/21 12:00 ibuprofen 200 mg tablet (Advil) 400 mg PO Q6H PRN 02/23/21 11/01/21 Unknown diclofenac sodium 75 mg 75 mg PO BID 07/21/21 11/01/21 Unknown tablet,delayed release melatonin 10 mg tablet 10 mg PO HS PRN 07/21/21 11/01/21 Unknown tramadol 50 mg tablet 50 mg PO Q6H PRN #30 tab 10/15/21 11/01/21 Unknown Past Medical History Medical History (Updated 11/02/21 @ 10:29 by Kalina Hull PA-C) Acid reflux controlled, stable per pt Anxiety controlled, stable per pt Depression controlled, stable per pt History of blood clots Superficial LLE clot (2019), unknown etiology, advised to wear compression stockings, no issues since; pt expresses belief was hematoma, is unsure History of COVID-19 10/06/2021 History of TMJ syndrome per [facility] records Hypertension controlled, stable per pt MARIE (nonalcoholic steatohepatitis) per [facility] records Osteoarthritis Vascular dementia per [facility] records, previously on Namenda Past Family History Family History Daughter Family history of reaction to anesthesia difficulty waking Past Surgical History Surgical History History of arthroplasty of left knee 03/26/2021: SAB at L3-L4 + PNB. No issues per anesthesia postop progress note. History of bilateral tubal ligation History of bladder suspension procedure History of cholecystectomy History of colonoscopy History of dilatation and curettage x2 History of tooth extraction all teeth removed Social History Smoking Status: Never smoker Do You Dip or Chew Tobacco: No Hx Alcohol Use: No Hx Substance Use: No substance use type: does not use Review of Systems Snoring, snores self awake; denied witnessed apneas or sleep studies. Patient denied chest pain, shortness of breath, fever, chills, cough, wheezing, or palpitations. Physical Exam Vital Signs Vitals (07/27/2021) BP 131/79 P 56 TEMP 97.8 SP02 97% on RA RESP 17 Physical (07/27/2021) Full cervical extension range of motion without pain Full TMJ range of motion TMD 3.5 finger breaths Mallampati Score 2 Dentition: edentulous Lungs: normal respiratory effort. Clear throughout to auscultation, no adventitious breath sounds Cardiac: regular rate and rhythm, no murmurs noted Carotid arteries: negative bruit bilat Extremities: no distal extremity edema Lab Results Anesthesia Preop Results Results Lab Comments: 09/30/2021 WBC: 6.2 H/H: 13/41 PLATELETS: 381 SODIUM: 136 POTASSIUM: 3.1 *2.9 at ER visit 10/06/2021 Tx with potassium supplement in ER. No updated K level. CHLORIDE: CO2: 27 BUN: 17 CREATININE: 0.9 GLUCOSE: 118 Testing Electrocardiogram Date: 03/01/21 NSR, rate 62 bpm Moderate voltage criteria for LVH, may be normal variant Chest X-Ray Date: 09/30/21 Impression: no acute abnormality Other Testing Chest CTA 10/06/2021 No pulmonary embolism Patchy ground-glass opacity within the right middle lobe may represent an inflammatory or infectious process. Early COVID pneumonia cannot be excluded
--- NOTE | 2021-11-04 14:39 | History & Physical Report ---
Date of Service November 04, 2021 Assessment & Plan (1) Osteoarthritis of right knee: We will proceed with a right total knee arthroplasty. Postoperatively she will be started on aspirin for DVT prophylaxis and kept overnight in the hospital for postoperative medical management. She plans to use [facility] home health upon discharge. History of Present Illness Chief Complaint: Osteoarthritis of the right knee. Primary Care Provider: Arslan Sousa MD Deanna is a pleasant 76-year-old female who I did a left knee replacement on about 6 months ago. She is done very well with that. Unfortunately she is struggling with her right knee. X-rays and clinical examination have been diagnostic for advanced osteoarthritis of the right knee. After failing conservative treatment, she has elected to proceed with a right total knee arthroplasty. Allergies Allergy/AdvReac Type Severity Reaction Status Date / Time No Known Allergies Allergy Verified 11/01/21 14:56 Home Medications Medication Instructions Recorded Confirmed Type acetaminophen 325 mg capsule 325 mg PO Q6H PRN 07/02/19 11/01/21 History hydrochlorothiazide 25 mg tablet 25 mg PO QAM 07/02/19 11/01/21 History omeprazole 20 mg capsule,delayed 20 mg PO QAM 07/02/19 11/01/21 History release escitalopram oxalate 20 mg tablet 20 mg PO QAM 02/23/21 11/01/21 History (Lexapro) furosemide 40 mg tablet (Lasix) 40 mg PO QAM 02/23/21 11/01/21 History ibuprofen 200 mg tablet (Advil) 400 mg PO Q6H PRN 02/23/21 11/01/21 History diclofenac sodium 75 mg 75 mg PO BID 07/21/21 11/01/21 History tablet,delayed release melatonin 10 mg tablet 10 mg PO HS PRN 07/21/21 11/01/21 History tramadol 50 mg tablet 50 mg PO Q6H PRN #30 tab 10/15/21 11/01/21 Rx Past Med/Surg History Medical History Acid reflux controlled, stable per pt Anxiety controlled, stable per pt Depression controlled, stable per pt History of blood clots Superficial LLE clot (2019), unknown etiology, advised to wear compression stockings, no issues since; pt expresses belief was hematoma, is unsure History of COVID-19 10/06/2021 History of TMJ syndrome per [facility] records Hypertension controlled, stable per pt MARIE (nonalcoholic steatohepatitis) per [facility] records Osteoarthritis Vascular dementia per [facility] records, previously on Namenda Surgical History History of arthroplasty of left knee 03/26/2021: SAB at L3-L4 + PNB. No issues per anesthesia postop progress note. History of bilateral tubal ligation History of bladder suspension procedure History of cholecystectomy History of colonoscopy History of dilatation and curettage x2 History of tooth extraction all teeth removed Family History Daughter Family history of reaction to anesthesia difficulty waking Social History Smoking Status: Never smoker Second Hand Exposure: No; Do You Dip or Chew Tobacco: No; Tobacco Cessation Education Requested by Patient: No Hx Alcohol Use: No Hx Substance Use: No Preferred Language: Icelandic Communication Ability: Effective Referral Clerk Required: No Beliefs That Will Affect Care: None marital status: Unknown Current Living Situation: Family Current Living Situation Comment: lives with son Other Information That Helps Us Care for You: No Feels Safe at Home: Yes Safety Concerns: Feels Safe At This Time Assistive Devices: Glasses Review of Systems All systems reviewed & are unremarkable except as noted in HPI & below. Physical Exam On physical examination of the right knee, she has a severe valgus deformity. She has range of motion of 0 to 120 degrees. She has no gross instability.. Constitutional WD/WN, vitals as above Eyes PERRL, conjunctivae normal, anicteric sclerae ENMT external ear and nose normal, oropharynx normal Neck trachea midline, no thyromegaly Respiratory normal respiratory effort Cardiovascular RRR, no murmur, no edema Gastrointestinal (Abdomen) normal bowel sounds, soft, nontender, no hepatosplenomegaly Psychiatric A+Ox3, euthymic affect Results & Data Results & Data Laboratory Results . Diagnostic Findings X-rays of the right knee show advanced osteoarthritis with joint space narrowing, osteophyte formation, and [id number] articulation. PG Care Time/CCT Total # of Minutes Spent Total Time Spent with Patient: Total time spent is greater than 50% in coordination of care (as documented) at patient's floor/unit and/or counseling patient: Coding Level of Care Code None Diagnoses Osteoarthritis of right knee M17.11
[~2021-11-05 08:32] MED LIST changes: +BUPIVACAINE 0.25% 30 ML VIAL ONE; +Ketorolac (*for OR use only*) 30 MG, dexAMETHasone 4 MG, KETAMINE HCL (**OR use only) 1... INFIL SCH; +MIDAZOLAM HCL 1 MG/ML 2ML VIAL ONE; +MISSING PHYSICIAN SIGNATURE ON ORDER SCH; +PROPOFOL IV EMULSION 10 MG/ML 20 ML VIAL IV ONE; -ROPIVACAINE 0.5% 5 MG/ML 30 ML VIAL ONE; -ROPIVACAINE 0.5% HCL/PF 150 MG, BUPIVACAINE 0.75% MPF 20 ML, EPINEPHrine 30MG/30ML (OR ... INSTIL SCH; +ceFAZolin 1000MG 1,000 MG/7.5 ML SYR IV SCH; -ceFAZolin 2000MG 2,000 MG/15 ML SYR IV SCH; +fentaNYL citrate 100 MCG/2 ML VIAL ONE
[2021-11-05] MEDS ORDERED: fentaNYL citrate 100 MCG/2 ML VIAL IV PRN (08:59)
[2021-11-05] MEDS ORDERED: ATROPINE SULFATE 0.1 MG/ML 10ML SYR IV PRN (08:59)
[2021-11-05] MEDS ORDERED: ONDANSETRON INJ 2 MG/ML 2 ML VIAL IV PRN ×2 (08:59→12:42)
[2021-11-05] MEDS ORDERED: ePHEDrine sulfate 50 MG/ML AMP IV PRN (08:59)
--- NOTE | 2021-11-05 09:06 | History & Physical Bridge Note ---
Date of Service November 05, 2021 History & Physical Bridge Note I have examined the patient, reviewed the History & Physical and in the interval since the performance of the History & Physical I have noted the following changes of clinical significance: no changes noted
[2021-11-05] MEDS ORDERED: ORTHO JOINT ANESTHETIC ONE (09:35)
[2021-11-05] MEDS ORDERED: PROPOFOL IV EMULSION 10 MG/ML 20 ML VIAL IV ONE ×2 (10:25)
[2021-11-05 10:31] LABS: Partial Thromboplastin Time 26.5 Seconds (21.0-31.0); Prothrombin Time 10.9 Seconds (9.0-12.0)
--- NOTE | 2021-11-05 11:18 | Operative Report ---
PG Post Operative Report Pre & Post Diagnosis Operation Date: 10/06/21 08:50 <No data on this case meets the specified criteria> Operation Date: 11/05/21 10:50 Pre-Op Diagnosis: Degenerative Joint Disease Right Knee Post-Op Diagnosis: Degenerative Joint Disease Right Knee I identified the patient and participated in the time-out.: Yes Procedure Operation Date: 10/06/21 08:50 <No data on this case meets the specified criteria> Operation Date: 11/05/21 10:50 Actual Procedures p Right Total Knee Arthroplasty(Right) - Romeo Florian DO Surgeon Romeo Florian DO Machine Preservative Filler Romeo Dangelo PAC Estimated Blood Loss 10 Findings Consistent with Post-Op Diagnosis Specimens Right femoral and tibial bone Complications none Disposition Disposition: Recovery Room Indications Deanna is a pleasant 76-year-old female who is been doing with chronic increasing right knee pain. X-rays and clinical examination are diagnostic for advanced arthritis of the right knee. After failing conservative treatment, she elected proceed with a right total knee arthroplasty. Description of Procedure Implants used: I used a Jeremiah Persona total knee arthroplasty system with a size 6 standard PS femur, E tibia with a 30 mm stem extension 34 oval patella, and a size 12 CPS polyethylene bearing. All components were cemented in place with Biomet cement. Deanna arrived [facility] for the above procedure. She was seen in the preoperative holding area and the operative extremity was identified and signed. She was given a preoperative antibiotic, TXA, a spinal anesthetic and an adductor nerve block. She was taken back to the operating room and laid on the table in supine position. She was given basic sedation. The operative knee was then prepped and draped in sterile fashion. A timeout was done, and the patient and the operative extremity was properly identified. A midline incision was made directly over the patella. Dissection was taken down to the extensor mechanism. A subvastus arthrotomy was used. The medial retinaculum was released and the fat pad was mostly excised. The knee was flexed and the ACL, PCL, and meniscus were removed. A drill was sent down the center of the femoral canal followed by an intramedullary alex. Off that alex a distal femoral cutting block was placed. 9 mm was resected off the distal femur at 5 of valgus. A posterior referencing AP sizing guide was then placed on the distal femur. The femur measured to be a size 6. 2 drill holes were placed in 3 of external rotation. A 4-in-1 cutting block was then impacted into place. Anterior, posterior, and chamfer cuts were then made. The proximal tibia was then exposed. An external tibial alignment guide was placed. A tibial cut guide was then anchored in place and the proximal tibia was then resected. The posterior aspect of the knee was then opened up and any additional meniscus fragments and osteophytes were removed. The tibia measured to be a size E. The tibial plate was then placed in the appropriate rotation and the tibia was drilled and punched. Trial components were then placed. I used a size 12 CPS polyethylene insert. The knee was brought through a full range of motion and felt to be stable. The peg holes for the femoral component were then drilled. The patella was then everted and 9 mm was resected off the posterior aspect of the patella. The patella measured to be a size 34 oval. 3 peg holes were then drilled. A trial patella was placed. The knee was once again brought through a full range of motion and felt to be stable. Trial components were then removed. The surrounding soft tissues were injected with 100 cc of an orthopedic pain control cocktail. All components were then cemented into place with Biomet cement. The final polyethylene insert was then snapped into place. Once cement was dry the tourniquet was deflated. Hemostasis was obtained. A dilute betadyne lavage was then done for 3 minutes. The joint was then irrigated with normal saline solution. The subvastus arthrotomy was then closed with #1 Vicryl suture. The skin was closed with 2-0 Vicryl, 3-0V lock suture, and lynn. A soft compressive dressing was placed. She was then transferred to a hospital bed and taken to the postanesthesia care unit in stable condition. She tolerated the procedure well. Romeo Dangelo PA-C, was present for the entire procedure. He was critical for patient positioning, prepping, draping, retraction exposure, wound closure and application of sterile dressing. I attest to the content of the Intraoperative Record and any orders documented therein. Any exceptions are noted below.
--- NOTE | 2021-11-05 12:16 | XRay Report ---
XR knee RT 1 or 2V routine CLINICAL HISTORY: Surgical Post Op. Status post total knee replacement COMPARISON STUDY: No previous studies for comparison. TECHNIQUE: 2 right knee views FINDINGS: The patient is status post total knee replacement. The prosthetic components are in anatomi c alignment with no acute abnormality seen. Air is present within the soft tissues from the procedure . Skin lynn are seen anteriorly. IMPRESSION: 1. Status post total knee replacement. ACT 112: Negative or not required by law. Electronically signed by: Ghanshyam Freire M.D. 11/05/2021 12:14 PM
[2021-11-05] MEDS ORDERED: NALOXONE HCL 0.4 MG/1 ML VIAL/CARP IV PRN (12:42)
[2021-11-05] MEDS ORDERED: MAGNESIUM HYDROXIDE SUSP 30 ML UDC PO PRN (12:42)
[2021-11-05] MEDS ORDERED: bisacodyL 10 MG SUPP PR PRN (12:42)
[2021-11-05] MEDS ORDERED: METOCLOPRAMIDE HCL INJ 5 MG/ML 2 ML VIAL IV PRN (12:42)
[2021-11-05] MEDS ORDERED: HYDROmorphone INJ 0.5 MG/0.5 ML SYR IV PRN (12:42)
[2021-11-05] MEDS: SODIUM CHLORIDE 0.9% 1000ML 1,000 ML IV SCH (14:26)
[2021-11-05] MEDS: ACETAMINOPHEN 500 MG TAB PO SCH ×2 (14:27→21:23)
[2021-11-05] MEDS: KETOROLAC TROMETHAMINE 15 MG/ML VIAL IV SCH ×2 (14:28→18:31)
--- NOTE | 2021-11-05 15:36 | Anesthesiology Progress Note ---
Date of Service November 05, 2021 Anesthesia Post Procedure Vital Signs Vital Signs: Temp Pulse Pulse Resp BP Pulse Ox 11/05/21 14:34 65 18 130/77 94 11/05/21 13:31 65 16 118/74 91 11/05/21 12:55 61 16 119/73 92 11/05/21 12:30 36.6 C 67 16 119/75 96 11/05/21 12:20 62 16 115/59 L 92 11/05/21 12:10 36.4 C L 62 16 111/59 L 92 11/05/21 12:00 64 16 110/63 92 11/05/21 11:50 60 14 99/59 L 98 11/05/21 11:41 36.2 C L 61 14 97/51 L 97 11/05/21 09:51 37 C 69 20 160/79 H 96 Transfer of Care Handoff Completed per policy Notes Mental Status: alert / awake / arousable Patient Amnestic to Procedure: Yes Nausea / Vomiting: adequately controlled Pain: adequately controlled Airway Patency, RR, SpO2: stable & adequate BP & HR: stable & adequate Hydration State: stable & adequate Neuraxial Anesthesia: was administered and sensory block is resolving Anesthetic Complications: no major complications apparent and Pt Satisfied with anesthetic care
[2021-11-05] MEDS: ceFAZolin 2000MG 2,000 MG/15 ML SYR IV SCH (17:37)
[2021-11-05] MEDS: oxyCODONE HCL IR 5 MG TAB (IMMEDIATE RELEASE) PO PRN ×2 (18:49→22:26)
[2021-11-05] MEDS: DOCUSATE SODIUM 100 MG CAP PO SCH (20:24)
[2021-11-05] MEDS: ASPIRIN 81 MG ECTAB PO SCH (20:24)
[2021-11-05] MEDS: SENNA 8.6 MG TAB PO SCH (20:24)
[2021-11-05] MEDS: MELATONIN 3 MG TAB PO PRN (22:26)
[2021-11-06] MEDS: KETOROLAC TROMETHAMINE 15 MG/ML VIAL IV SCH ×4 (01:02→18:26)
[2021-11-06] MEDS: ceFAZolin 2000MG 2,000 MG/15 ML SYR IV SCH (01:03)
[2021-11-06] MEDS: SODIUM CHLORIDE 0.9% 1000ML 1,000 ML IV SCH (01:12)
[2021-11-06] MEDS: ACETAMINOPHEN 500 MG TAB PO SCH ×3 (06:02→23:19)
--- NOTE | 2021-11-06 07:18 | Orthopedic Progress Note ---
Date of Service November 06, 2021 Assessment & Plan (1) Status post right knee replacement: Overall she is doing well. She is having some pain in the knee which is to be expected. She will be seen by physical therapy today for ambulation and range of motion exercises. She would like to return home tomorrow. I think it is reasonable to spend today working on pain control and ambulation with therapy. She is on aspirin for DVT prophylaxis. I plan to discharge her to home tomorrow. The dressing can be changed today after physical therapy. Hilario Huerta was seen and examined at bedside this morning. Overall she is doing fairly well. She was having some pain in her knee yesterday. Is feeling a little bit better now. She has been a little slow to ambulate. She has been up a couple times to the bathroom. She has no other complaints. Review of Systems All systems reviewed & are unremarkable except as noted in HPI & below. Physical Exam On physical examination the right knee, the dressing is clean and dry. Her leg is out full extension. She has active dorsiflexion plantarflexion of her right ankle. Results & Data Results & Data Laboratory Results . Diagnostic Findings Postoperative x-rays of the right knee show the prosthesis to be in anatomic alignment without any evidence of fracture, dislocation, or loosening. PG Care Time/CCT Total # of Minutes Spent Total Time Spent with Patient: Total time spent is greater than 50% in coordination of care (as documented) at patient's floor/unit and/or counseling patient: Coding Level of Care Code 40807 Post Operative Follow-Up Diagnoses Status post right knee replacement Z96.651
[2021-11-06] MEDS ORDERED: dexAMETHasone 4 MG TAB PO SCH (08:00)
[2021-11-06] MEDS: oxyCODONE HCL IR 5 MG TAB (IMMEDIATE RELEASE) PO PRN ×2 (08:04→23:19)
[2021-11-06] MEDS: MULTIVITAMIN TAB PO SCH (09:08)
[2021-11-06] MEDS: PANTOprazole 40 MG TAB PO SCH (09:08)
[2021-11-06] MEDS: FUROSEMIDE 40 MG TAB PO SCH (09:09)
[2021-11-06] MEDS: ESCITALOPRAM OXALATE 20 MG TAB PO SCH (09:09)
[2021-11-06] MEDS: hydroCHLOROthiazide 25 MG TAB PO SCH (09:09)
[2021-11-06] MEDS: ASPIRIN 81 MG ECTAB PO SCH ×2 (09:10→20:46)
[2021-11-06] MEDS: DOCUSATE SODIUM 100 MG CAP PO SCH ×2 (09:10→20:46)
[2021-11-06] MEDS: SENNA 8.6 MG TAB PO SCH (20:46)
[2021-11-06] MEDS: MELATONIN 3 MG TAB PO PRN (23:20)
[2021-11-07] MEDS: KETOROLAC TROMETHAMINE 15 MG/ML VIAL IV SCH ×2 (00:06→05:42)
[2021-11-07] MEDS: ACETAMINOPHEN 500 MG TAB PO SCH (05:41)
--- NOTE | 2021-11-07 07:25 | Orthopedic Progress Note ---
Date of Service November 07, 2021 Assessment & Plan (1) Status post right knee replacement: Overall she is doing fairly well. She has some pain in her knee and her right calf but she is been working with physical therapy. She is hoping to go home today. We will get an ultrasound of her right calf to ensure that there is no DVT. Assuming, that the ultrasound is negative she can be discharged home later today. She will follow-up with orthopedics in 2 weeks. Hilario Huerta was seen and examined at bedside this morning. Overall she is doing fairly well. She has little bit of pain in her right calf. She has been up and ambulating. She was able to work with physical therapy yesterday. She has no other complaints. Review of Systems All systems reviewed & are unremarkable except as noted in HPI & below. Physical Exam On physical examination of her right knee, the dressing has been changed and the incision is clean and dry. Her leg is out full extension. She does have some pain in the mid aspect of her right calf. She has active dorsiflexion and plantarflexion of her right ankle. Results & Data Results & Data Laboratory Results . Diagnostic Findings . PG Care Time/CCT Total # of Minutes Spent Total Time Spent with Patient: Total time spent is greater than 50% in coordination of care (as documented) at patient's floor/unit and/or counseling patient: Coding Level of Care Code 50436 Post Operative Follow-Up Diagnoses Status post right knee replacement Z96.651
--- NOTE | 2021-11-07 07:27 | Discharge Summary ---
Date of Service November 07, 2021 Admission HPI (Per Admitting) Deanna is a pleasant 76-year-old female who I did a left knee replacement on about 6 months ago. She is done very well with that. Unfortunately she is struggling with her right knee. X-rays and clinical examination have been diagnostic for advanced osteoarthritis of the right knee. After failing conservative treatment, she has elected to proceed with a right total knee arthroplasty. Admission Exam (Per Admitting) On physical examination of the right knee, she has a severe valgus deformity. She has range of motion of 0 to 120 degrees. She has no gross instability.. Principal Diagnosis Same as "Discharge Diagnosis" noted below under Discharge Instructions. Discharge Exam On physical examination of her right knee, the dressing has been changed and the incision is clean and dry. Her leg is out full extension. She does have some pain in the mid aspect of her right calf. She has active dorsiflexion and plantarflexion of her right ankle. Discharge Data Procedures Performed Operation Date: 10/06/21 08:50 <No data on this case meets the specified criteria> Operation Date: 11/05/21 10:50 Actual Procedures p Right Total Knee Arthroplasty(Right) - Romeo Florian DO Ordered Studies 11/05/21 05:00 US - OR guided needle placemen Routine 11/07/21 07:20 US venous doppler LE RT Urgent Hospital Course (1) Status post right knee replacement: On November 05 on Deanna arrived at [facility] and underwent a right knee replacement without complication. She had a spinal anesthetic and a right adductor nerve block. Postoperatively she was started on aspirin for DVT prophylaxis and transferred to the general orthopedic floors. Her hospital course was uneventful. On postop day #1 her vital signs were stable and her pain was well controlled. She was able to participate well with physical thera py doing ambulation and range of motion exercises. On postop day #2 she continued to do fairly well. She was having a little bit of soreness in her right knee but it was not too bad. She was also having some soreness in her right calf. An ultrasound was done of her right leg which was negative. She was then discharged home. She will follow-up with orthopedics in 2 weeks. PG Care Time/CCT Total # of Minutes Spent Total Time Spent with Patient: Total time spent is greater than 50% in coordination of care (as documented) at patient's floor/unit and/or counseling patient: Discharge Plan Discharge Items Patient Disposition: Home - Home Health Services Reason For Visit: DJD Right Knee Discharge Diagnosis: Right knee replacement Activity: Per Instructions section Non-emergency contact: Surgeon Call non-emergency contact if: your wound has increased redness and your wound has increased drainage Follow-up/Referrals: Arslan Sosua MD [Primary Care Provider] - Diet: Regular Addtl Attending Provider Instructions: Activity and Therapy Recommendations: * If you are using [facility] then therapy will be provided at your home until they feel you have accomplished all of your goals. * If you are using [facility] then Physical Therapy will be provided until they feel you are ready to start Outpatient Physical Therapy. * If you are not using home therapy then Outpatient Physical Therapy should start about 3-5 days from your day of surgery. Therapy will last about 6-10 weeks * It is important not to put a pillow under your knee when you are relaxing or sleeping. It is just as important to make sure you are getting your knee perfe ctly straight as it is to regain your knee bend. * You were shown a series of exercises in the hospital. Do these exercises three times each day including the exercises you were shown in physical therapy. * Get up and walk several times each day. For the first four weeks, try not to stand or walk for more than one hour at a time. If you do stand or walk for more than one hour, you will not hurt anything, but your leg will likely swell. * As you feel comfortable, you may change from the walker or crutches to a cane and then to independent walking. Medications: * Narcotic You will likely be sent home from the hospital with a prescription for the narcotic pain medication that worked best throughout your stay. * Aspirin Most patients will be required to take Aspirin 81mg twice a day for 6 weeks after surgery. This is obtained [id number] and a prescription is not necessary. * Other medications may be prescribed for specific circumstances. If you have any questions, please call the office at . * Resume previous home medications unless otherwise instructed TEDs/Elastic Stockings: The white elastic stockings help limit swelling and prevent blood clots from forming in your legs.~ The more you wear them, the more they work. Wear them for six weeks. Dressing Care: The dressing can be changed after physical therapy on postop day #1. Daily dry dressing changes for a few days, especially if the incision is still draining some. If the incision is not draining then you may leave the lynn open to air. If there is a little bit of drainage or if the lynn are getting stuck on your clothing then cover the incision with a dry dressing. The lynn will be removed at your 2 week follow-up appointment. Showering: You may shower 5 days from the day of surgery as long as the incision is no longer draining. You may shower with the lynn exposed. Let soapy water run over the lynn and pat them dry. Do not scrub or soak the incision. Things To Watch For: * Drainage from the incision site that occurs more than one week after your surgery. * Increased redness at the incision site. * Fever above 102 degrees Fahrenheit. * Unusual chest pain or shortness of breath. * Call [facility] at with any of the above problems Follow-Up Visit: Follow-up with Dr. Florian's PA (Romeo Dangelo) 2-3 weeks after your day of surgery. He will remove your lynn and answer any questions. If you have any additional questions or concerns, Dr Florian is usually in the office at the same time and will be available An appointment was probably scheduled when you signed-up for surgery in the office. If you have any questions call Office Instructions: More detailed instructions as well as Frequently Asked Questions were provided in a folder by our office when you signed-up for surgery. Please review these instructions when you get home. If you have any further questions or concerns, please feel free to call the office at [phone] Pending Studies at Discharge: No Stand-Alone Forms: My [facility] [email or web address], Smoking Cessation Medications and DC Order Prescriptions: New oxycodone-acetaminophen 5-325 mg tablet 1 tab PO Q6H PRN (Reason: pain) Qty: 30 RF: 0 aspirin 81 mg Tablet,Delayed Release (Dr/Ec) 81 mg PO BID 42 Days Qty: 0 RF: 0 Continued tramadol 50 mg tablet 50 mg PO Q6H PRN (Reason: pain) Qty: 30 RF: 0 hydrochlorothiazide 25 mg tablet 25 mg PO QAM RF: 0 omeprazole 20 mg capsule,delayed release(DR/EC) 20 mg PO QAM RF: 0 acetaminophen 325 mg capsule 325 mg PO Q6H PRN (Reason: Pain) RF: 0 furosemide [Lasix] 40 mg Tablet 40 mg PO QAM RF: 0 ibuprofen [Advil] 200 mg Tablet 400 mg PO Q6H PRN (Reason: Pain) RF: 0 escitalopram oxalate [Lexapro] 20 mg Tablet 20 mg PO QAM RF: 0 diclofenac sodium 75 mg tablet,delayed release (DR/EC) 75 mg PO BID RF: 0 melatonin 10 mg Tablet 10 mg PO HS PRN (Reason: Sleep) RF: 0 Discharge Orders: Discharge Order (Routine); Ordered 11/07/21 Ordered By: Romeo Florian Admission Data Admit Date/Time: 11/05/21 11:43 Attending Provider: Romeo Florian Admit Provider: Romeo Florian Primary Care Provider: Arslan Sousa Other Providers: [facility],Home Healthcare
[2021-11-07] MEDS: PANTOprazole 40 MG TAB PO SCH (07:38)
[2021-11-07] MEDS: oxyCODONE HCL IR 5 MG TAB (IMMEDIATE RELEASE) PO PRN (08:01)
[2021-11-07] MEDS: ASPIRIN 81 MG ECTAB PO SCH (08:02)
[2021-11-07] MEDS: DOCUSATE SODIUM 100 MG CAP PO SCH (08:02)
[2021-11-07] MEDS: MULTIVITAMIN TAB PO SCH (08:03)
[2021-11-07] MEDS: FUROSEMIDE 40 MG TAB PO SCH (08:03)
[2021-11-07] MEDS: hydroCHLOROthiazide 25 MG TAB PO SCH (08:03)
[2021-11-07] MEDS: ESCITALOPRAM OXALATE 20 MG TAB PO SCH (08:03)
--- NOTE | 2021-11-07 09:41 | Ultrasound Report ---
RIGHT LOWER EXTREMITY VENOUS DOPPLER CLINICAL HISTORY: Recent knee replacement. Posterior calf discomfort. rule out RLE DVT. COMPARISON STUDY: No previous studies for comparison. TECHNIQUE: Sonography of the deep venous system of the right lower extremity was performed. Compress ion and augmentation were evaluated. FINDINGS: The right common femoral, superficial femoral and popliteal veins were compressible. Augme ntation was normal. Flow was shown within the deep calf vessels. Sonography of the calf at site of di scomfort demonstrated no abnormality. IMPRESSION: No evidence of deep venous thrombus within the right lower extremity. ACT 112: Negative or not required by law. Electronically signed by: Tone Isaac M.D. 11/07/2021 9:39 AM
== END 2021-11-07 13:30 | disposition home health service (06) ==
LOC: ASU 08:32 → 3E 08:32
DX: Z79.899 Other long term (current) drug therapy; I10 Essential (primary) hypertension; M17.11 Unilateral primary osteoarthritis, right knee; Z98.890 Other specified postprocedural states; Z79.1 Long term (current) use of non-steroidal anti-inflammatories (NSAID); Z79.01 Long term (current) use of anticoagulants; K21.9 Gastro-esophageal reflux disease without esophagitis